=== PATIENT | female | born 1950 | race Asian ===

== ENCOUNTER 2016-05-29 09:46 | Outpatient (CLI) | payer OTHER ==
--- NOTE | 2016-05-29 11:12 | DIAGNOSTIC IMAGING REPORT ---
PROCEDURE: MG BILATERAL SCREENING W/CAD INDICATION: SCREENING TECHNIQUE: Bilateral CC and MLO digital views. COMPARISON: None available. (Reportedly left mammogram 2003) FINDINGS: Computer-aided detection applied. Moderately dense parenchymal pattern with a few dystrophic calcifications, including an 8 mm calcified fibroadenoma in the upper outer right breast. No evidence of mass or suspicious calcification. IMPRESSION: 1. Negative mammogram. RESULT CODE: 2- Benign finding(s). A. A negative report should not delay biopsy if a dominant or clinically suspicious mass is present. 10-15% of cancers are not identified by x-ray. B. A negative report may reinforce clinical impression. C. Adenosis and dense breasts may obscure an underlying neoplasm. D. False positive reports average 6-10%. E.. A yearly screening mammogram is recommended. A reminder letter will be scheduled.
== END 2016-05-29 23:00 ==
LOC: MAM SRH 09:46
DX: Z12.31 Encounter for screening mammogram for malignant neoplasm of breast (principal)